=== PATIENT | male | born 1945 | race African-American/Black ===

== ENCOUNTER 2017-02-28 11:47 | Emergency (ER) | payer OTHER ==
[~2017-02-28] VITALS: Ht 180.3 cm; Wt 105.0 kg
[2017-02-28] MEDS ORDERED: ONDANSETRON HCL 4MG/2ML VIAL IV ONE (12:15)
[2017-02-28] MEDS ORDERED: MORPHINE SULFATE 4 MG/ML CPJ (NOT FOR IM USE) IV ONE (12:15)
[2017-02-28 12:36] LABS: HEMATOCRIT. 36.7 % (42.0-52.0); HEMOGLOBIN. 12.3 g/dL (14.0-18.0); MEAN CORPUSCULAR HEMOGLOBIN 28.9 pg (28.0-32.0); MEAN CORPUSCULAR VOLUME 85.9 fL (80.0-94.0); MEAN PLATELET VOLUME 8.8 fl (7.4-10.4); PLATELET 184 x1000/uL (130-400); RED BLOOD CELL COUNT 4.27 mill/uL (4.7-6.1); RED CELL DISTRIBUTION WIDTH 15.5 % (11.6-14.6)
[2017-02-28 12:43] LABS: INR 2.4; PROTHROMBIN TIME 24.9 sec
[2017-02-28 12:51] LABS: CARBON DIOXIDE 24 mEq/L (21-32); CHLORIDE 112 mEq/L (98-107)
[2017-02-28 13:11] LABS: PLATELET ESTIMATE NORMAL
[2017-02-28 13:21] LABS: CLARITY URINE CLEAR (CLEAR); COLOR URINE YELLOW (YELLOW); GLUCOSE URINE NEGATIVE (NEGATIVE); KETONES URINE NEGATIVE (NEGATIVE); LEUKOCYTE ESTERASE URINE NEGATIVE (NEGATIVE); NITRITE URINE NEGATIVE (NEGATIVE); OCCULT BLOOD URINE 2+ (NEGATIVE); PROTEIN URINE 4+ (NEGATIVE); SPECIFIC GRAVITY URINE 1.019 (1.005-1.030); UROBILINOGEN URINE 0.2 E.U./dL (0.2-1.0)
[2017-02-28 16:10] VITALS: BP 155/99
== END 2017-02-28 16:28 | disposition home or self-care (01) ==
LOC: ER 12:14
DX: R10.31 Right lower quadrant pain (principal); I48.91 Unspecified atrial fibrillation; E11.9 Type 2 diabetes mellitus without complications; I10 Essential (primary) hypertension; Z98.890 Other specified postprocedural states; Z79.01 Long term (current) use of anticoagulants
CPT/HCPCS: 36415; 74176; 80053; 81001; 83690; 85025; 85610; 96374; 96375; 99285; J2270; J2405

== ENCOUNTER 2018-02-28 23:39 | Inpatient (IN) | payer OTHER ==
[~2018-02-28] VITALS: Ht 172.7 cm; Wt 95.7 kg
[2018-03-01] VITALS (81 sets, daily range): BP systolic 117–179; BP diastolic 61–119
[2018-03-01 02:36] LABS: BASOPHILS % 0.6 % (0.0-2.0); EOSINOPHILS % 0.4 % (0.0-5.0); HEMATOCRIT. 31.8 % (42.0-52.0); HEMOGLOBIN. 10.5 g/dL (14.0-18.0); LYMPHOCYTES % 15.9 % (20.0-50.0); MEAN CORPUSCULAR HEMOGLOBIN 29.5 pg (28.0-32.0); MEAN CORPUSCULAR VOLUME 89.2 fL (80.0-94.0); MEAN PLATELET VOLUME 9.8 fl (7.4-10.4); MONOCYTES % 8.2 % (2.0-8.0); NEUTROPHILS % 74.9 % (40.0-76.0); PLATELET 174 x1000/uL (130-400); RED BLOOD CELL COUNT 3.57 mill/uL (4.7-6.1); RED CELL DISTRIBUTION WIDTH 14.4 % (11.6-14.6)
[2018-03-01 02:39] LABS: CHLORIDE 114 mEq/L (98-107)
[2018-03-01 02:42] LABS: INR 1.9; PARTIAL THROMBOPLASTIN TIME 57.8 sec (23.4-31.0); PROTHROMBIN TIME 19.4 sec (9.4-11.6)
[2018-03-01 02:43] LABS: ETHANOL BLOOD < 10 mg/dL
[2018-03-01 02:47] LABS: CREATINE KINASE 58 IU/L (39-308)
[2018-03-01] MEDS ORDERED: PHYTONADIONE 10 MG in DEXTROSE 5% WATER 50 ML IV ONE (03:15)
[2018-03-01] MEDS ORDERED: LEVETIRACETAM 1000MG/100ML 100 ML IV SCH (03:32)
[2018-03-01] MEDS ORDERED: PHYTONADIONE 10MG/ML AMP SUBCUT SCH (03:35)
[2018-03-01 04:29] LABS: AMMONIA 47 uMol/L (<32)
[2018-03-01] MEDS ORDERED: NICARDIPINE 100 MG in SODIUM CHLORIDE 0.9% 60 ML IV PRN (07:00)
[2018-03-01] MEDS ORDERED: ONDANSETRON HCL 4MG/2ML VIAL IV PRN (09:45)
[2018-03-01] MEDS ORDERED: LORAZEPAM 2MG/ML CPJ IV PRN (09:45)
[2018-03-01] MEDS ORDERED: ACETAMINOPHEN 650MG SUPP PR PRN (09:45)
[2018-03-01 09:59] LABS: CLARITY URINE CLEAR (CLEAR); COLOR URINE YELLOW (YELLOW); KETONES URINE NEGATIVE (NEGATIVE); LEUKOCYTE ESTERASE URINE NEGATIVE (NEGATIVE); NITRITE URINE NEGATIVE (NEGATIVE); OCCULT BLOOD URINE TRACE (NEGATIVE); PROTEIN URINE 3+ (NEGATIVE); SPECIFIC GRAVITY URINE 1.013 (1.005-1.030); UROBILINOGEN URINE 0.2 E.U./dL (0.2-1.0)
[2018-03-01 10:12] LABS: *AMPHETAMINES SCREEN URINE NEGATIVE (NEGATIVE); *BARBITURATES SCREEN URINE NEGATIVE (NEGATIVE); *BENZODIAZEPINES SCREEN URINE NEGATIVE (NEGATIVE); *COCAINE SCREEN URINE NEGATIVE (NEGATIVE); METHADONE URINE SCREEN NEGATIVE (NEGATIVE); OPIATES URINE SCREEN PRESUMTIVE POSITIVE (NEGATIVE); PHENCYCLIDINE URINE SCREEN NEGATIVE (NEGATIVE)
[2018-03-01 10:13] LABS: CANNABINOID URINE SCREEN NEGATIVE (NEGATIVE)
[2018-03-01] MEDS: LEVETIRACETAM 500 MG in SODIUM CHLORIDE 0.9% 100 ML IV SCH ×2 (11:34→21:37)
[2018-03-01 11:40] LABS: INR 1.5; PROTHROMBIN TIME 16.1 sec (9.4-11.6)
[2018-03-01 11:49] LABS: BASOPHILS % 0.2 % (0.0-2.0); EOSINOPHILS % 0.1 % (0.0-5.0); HEMATOCRIT. 32.9 % (42.0-52.0); MEAN CORPUSCULAR HEMOGLOBIN 29.6 pg (28.0-32.0); MEAN CORPUSCULAR VOLUME 88.5 fL (80.0-94.0); MEAN PLATELET VOLUME 9.9 fl (7.4-10.4); MONOCYTES % 9.3 % (2.0-8.0); NEUTROPHILS % 72.4 % (40.0-76.0); PLATELET 179 x1000/uL (130-400); RED BLOOD CELL COUNT 3.71 mill/uL (4.7-6.1); RED CELL DISTRIBUTION WIDTH 14.1 % (11.6-14.6)
[2018-03-01] MEDS ORDERED: LIDOCAINE HCL 1% 20ML VIAL (Pyxis) INJ ONE (12:10)
[2018-03-01] MEDS ORDERED: IPRATROPIUM/ALBUTEROL 0.5-3(2.5)MG/3ML NEB HHN PRN (12:15)
[2018-03-01] MEDS ORDERED: DILTIAZEM HCL 125 MG in DEXT 5% WATER 100 ML IV PRN (13:00)
[2018-03-01] MEDS: CITRIC ACID/SODIUM CITRATE SOLN 30ML UDC PO SCH ×2 (13:09→16:01)
[2018-03-01] MEDS: SODIUM CHLORIDE 0.9% 1,000 ML IV SCH (13:09)
[2018-03-01] MEDS: IPRATROPIUM/ALBUTEROL 0.5-3(2.5)MG/3ML NEB INH SCH ×2 (13:33→21:01)
[2018-03-01] MEDS ORDERED: PHYTONADIONE 10MG/ML AMP SUBCUT NR (14:00)
[2018-03-01 14:33] LABS: BG BASE EXCESS -5.9 mmol/L (-2.0-2.0); BG CARBOXYHEMOGLOBIN 0.3 % (0.5-1.5); BG DEOXYHEMOGLOBIN 2.3 % (0.0-5.0); BG FRACTION INSPIRED OXYGEN 21; BG HCO3 ACT 16.3 mmol/L (22.0-26.0); BG METHEMOGLOBIN 0.3 % (0.0-1.5); BG OXYGEN SATURATION 97.7 % (92.0-98.5); BG OXYHEMOGLOBIN 97.1 % (94.0-97.0); BG PCO2 23.7 mmHg (35.0-45.0); BG PH 7.455 (7.350-7.450); BG PO2 105.9 mmHg (75.0-100.0); BG SAMPLE SITE RIGHT RADIAL; BG TOTAL HEMOGLOBIN 12.1 g/dL (12.0-18.0); BG VENT MODE ROOM AIR
[2018-03-01 14:40] LABS: T4 FREE 1.12 ng/dL (0.76-1.46)
[2018-03-01 17:22] LABS: INR 1.3
[2018-03-01 17:38] LABS: CREATINE KINASE 77 IU/L (39-308)
[2018-03-01 17:42] LABS: CREATINE KINASE MB FRACTION 1.3 ng/mL (0.5-3.6)
[2018-03-01] MEDS ORDERED: DIGOXIN 500MCG/2ML AMP IV NR (18:30)
[2018-03-01] MEDS ORDERED: ENALAPRIL 2.5MG/2ML VIAL 2ML IV PRN (18:30)
[2018-03-01] MEDS: NITROGLYCERIN OINT 1GM/INCH UDPKT TD SCH ×2 (18:32→21:37)
[2018-03-01] MEDS: MORPHINE SULFATE 4 MG/ML CPJ (NOT FOR IM USE) IV PRN (19:33)
[2018-03-01] MEDS ORDERED: NICARDIPINE 50 MG in SODIUM CHLORIDE 0.9% 230 ML IV PRN (20:45)
[2018-03-01] MEDS: NICARDIPINE 100 MG in SODIUM CHLORIDE 0.9% 60 ML IV PRN (21:38)
[2018-03-01 23:06] LABS: CREATINE KINASE 64 IU/L (39-308)
[2018-03-01 23:07] LABS: CREATINE KINASE MB FRACTION 1.1 ng/mL (0.5-3.6)
[2018-03-02] VITALS (78 sets, daily range): BP systolic 60–227; BP diastolic 39–85
[2018-03-02] MEDS: IPRATROPIUM/ALBUTEROL 0.5-3(2.5)MG/3ML NEB INH SCH ×4 (01:01→20:01)
[2018-03-02] MEDS: SODIUM CHLORIDE 0.9% 1,000 ML IV SCH ×2 (02:56→17:49)
[2018-03-02] MEDS ORDERED: PHYTONADIONE 10MG/ML AMP SUBCUT NR (05:00)
[2018-03-02] MEDS: NITROGLYCERIN OINT 1GM/INCH UDPKT TD SCH ×3 (05:06→21:18)
[2018-03-02] MEDS: NICARDIPINE 100 MG in SODIUM CHLORIDE 0.9% 60 ML IV PRN ×2 (05:26→15:53)
[2018-03-02 05:31] LABS: INR 1.3; PROTHROMBIN TIME 13.2 sec (9.4-11.6)
[2018-03-02 05:37] LABS: HEMATOCRIT. 28.5 % (42.0-52.0); HEMOGLOBIN. 9.5 g/dL (14.0-18.0); MEAN CORPUSCULAR HEMOGLOBIN 29.7 pg (28.0-32.0); MEAN CORPUSCULAR VOLUME 88.8 fL (80.0-94.0); MEAN PLATELET VOLUME 9.6 fl (7.4-10.4); PLATELET 187 x1000/uL (130-400); RED BLOOD CELL COUNT 3.21 mill/uL (4.7-6.1); RED CELL DISTRIBUTION WIDTH 14.5 % (11.6-14.6)
[2018-03-02 05:47] LABS: PHOSPHORUS 4.3 mg/dL (2.5-4.9)
[2018-03-02 05:51] LABS: T4 FREE 1.06 ng/dL (0.76-1.46)
[2018-03-02 08:29] LABS: BG BASE EXCESS -8.2 mmol/L (-2.0-2.0); BG CARBOXYHEMOGLOBIN 0.3 % (0.5-1.5); BG DEOXYHEMOGLOBIN 3.1 % (0.0-5.0); BG FRACTION INSPIRED OXYGEN 21; BG HCO3 ACT 14.5 mmol/L (22.0-26.0); BG METHEMOGLOBIN 0.3 % (0.0-1.5); BG OXYGEN SATURATION 96.9 % (92.0-98.5); BG OXYHEMOGLOBIN 96.3 % (94.0-97.0); BG PCO2 21.7 mmHg (35.0-45.0); BG PH 7.443 (7.350-7.450); BG PO2 90.9 mmHg (75.0-100.0); BG SAMPLE SITE RIGHT BRACHIAL; BG TOTAL HEMOGLOBIN 9.3 g/dL (12.0-18.0); BG VENT MODE ROOM AIR
[2018-03-02] MEDS ORDERED: METRONIDAZOLE 500 MG PREMIX 100 ML IV SCH (08:45)
[2018-03-02] MEDS ORDERED: CEFEPIME 2,000 MG in DEXT 5% WATER 100 ML IV SCH (08:45)
[2018-03-02] MEDS ORDERED: THROMBIN (BOVINE) 5000 UNITS/VIAL TOP ONE (09:22)
[2018-03-02] MEDS ORDERED: GELATIN SPONGE,COMPRESSED SZ 100 ONE (09:22)
[2018-03-02] MEDS ORDERED: LIDOCAINE HCL/EPINEPHRINE 1%-EPI 1:100,000 20 ML VIAL ONE (09:22)
[2018-03-02] MEDS ORDERED: NORMAL SALINE 0.9% 10 ML SYR ONE (09:22)
[2018-03-02] MEDS ORDERED: BACITRACIN 50,000 UNITS/VIAL ONE (09:23)
[2018-03-02] MEDS ORDERED: ESMOLOL 2500MG PREMIX 250 ML IV PRN (09:30)
[2018-03-02] MEDS ORDERED: FENTANYL CITRATE/PF 50MCG/ML 5ML VIAL ONE (09:39)
[2018-03-02] MEDS ORDERED: PROPOFOL 200MG/20ML VIAL IV ONE (09:39)
[2018-03-02] MEDS ORDERED: ROCURONIUM BROMIDE 10MG/ML VIAL 5ML IV ONE ×3 (09:39→10:50)
[2018-03-02] MEDS ORDERED: MIDAZOLAM HCL 2 MG/2 ML VIAL ONE (09:39)
[2018-03-02] MEDS ORDERED: POVIDONE-IODINE OINT 28.4GM TOP ONE (09:44)
[2018-03-02] MEDS ORDERED: BACITRACIN ZINC 15GM TUBE TOP ONE (09:44)
[2018-03-02] MEDS ORDERED: FENTANYL CITRATE/PF 50MCG/ML 2ML VIAL ONE ×2 (09:56→10:15)
[2018-03-02] MEDS ORDERED: CEFAZOLIN SODIUM 1000MG/VIAL ONE (10:14)
[2018-03-02 11:25] LABS: PLATELET ESTIMATE NORMAL
[2018-03-02] MEDS: LEVETIRACETAM 500 MG in SODIUM CHLORIDE 0.9% 100 ML IV SCH ×2 (12:13→20:38)
[2018-03-02] MEDS: PANTOPRAZOLE SODIUM 40 MG/VIAL IV SCH (12:31)
[2018-03-02] MEDS: PROPOFOL 10MG/ML 100ML 100 ML IV PRN ×2 (12:32→17:48)
[2018-03-02] MEDS: CEFEPIME 2,000 MG in DEXT 5% WATER 100 ML IV SCH (13:12)
[2018-03-02 14:11] LABS: BG BASE EXCESS -9.6 mmol/L (-2.0-2.0); BG CARBOXYHEMOGLOBIN 0.1 % (0.5-1.5); BG DEOXYHEMOGLOBIN 1.6 % (0.0-5.0); BG FRACTION INSPIRED OXYGEN 35; BG HCO3 ACT 14.8 mmol/L (22.0-26.0); BG METHEMOGLOBIN 0.3 % (0.0-1.5); BG OXYGEN SATURATION 98.4 % (92.0-98.5); BG PCO2 27.2 mmHg (35.0-45.0); BG PH 7.353 (7.350-7.450); BG PO2 166.5 mmHg (75.0-100.0); BG SAMPLE SITE A-LINE; BG TIDAL VOLUME(mL) 550 mL; BG TOTAL HEMOGLOBIN 8.6 g/dL (12.0-18.0); BG VENT MODE VENT - A/C; BG VENT RATE 12 set
[2018-03-02] MEDS: METRONIDAZOLE 500 MG PREMIX 100 ML IV SCH ×2 (14:18→21:15)
[2018-03-02] MEDS: DIGOXIN 500MCG/2ML AMP IV SCH (17:43)
[2018-03-02] MEDS: PROPYLTHIOURACIL 50MG TABLET NG SCH (20:00)
[2018-03-02] MEDS ORDERED: EPOETIN ALFA 4000UNITS/ML VIAL SUBCUT NR (21:00)
[2018-03-03] VITALS (87 sets, daily range): BP systolic 99–179; BP diastolic 41–109
[2018-03-03] MEDS: PROPOFOL 10MG/ML 100ML 100 ML IV PRN ×4 (00:47→15:50)
[2018-03-03] MEDS: NICARDIPINE 100 MG in SODIUM CHLORIDE 0.9% 60 ML IV PRN ×2 (00:47→16:38)
[2018-03-03] MEDS: IPRATROPIUM/ALBUTEROL 0.5-3(2.5)MG/3ML NEB INH SCH ×4 (01:28→20:48)
[2018-03-03] MEDS: PROPYLTHIOURACIL 50MG TABLET NG SCH ×3 (04:00→20:11)
[2018-03-03] MEDS: NITROGLYCERIN OINT 1GM/INCH UDPKT TD SCH (05:11)
[2018-03-03] MEDS: MORPHINE SULFATE 4 MG/ML CPJ (NOT FOR IM USE) IV PRN ×3 (05:20→16:09)
[2018-03-03 05:47] LABS: BASOPHILS % 0.2 % (0.0-2.0); HEMATOCRIT. 26.4 % (42.0-52.0); HEMOGLOBIN. 8.6 g/dL (14.0-18.0); LYMPHOCYTES % 8.2 % (20.0-50.0); MEAN CORPUSCULAR HEMOGLOBIN 29.8 pg (28.0-32.0); MEAN CORPUSCULAR VOLUME 91.7 fL (80.0-94.0); MEAN PLATELET VOLUME 9.5 fl (7.4-10.4); MONOCYTES % 11.2 % (2.0-8.0); NEUTROPHILS % 80.4 % (40.0-76.0); PLATELET 169 x1000/uL (130-400); RED BLOOD CELL COUNT 2.88 mill/uL (4.7-6.1); RED CELL DISTRIBUTION WIDTH 15.1 % (11.6-14.6)
[2018-03-03 05:53] LABS: INR 1.3; PROTHROMBIN TIME 13.8 sec (9.4-11.6)
[2018-03-03 06:44] LABS: PHOSPHORUS 4.8 mg/dL (2.5-4.9)
[2018-03-03 07:29] LABS: BG BASE EXCESS -9.4 mmol/L (-2.0-2.0); BG CARBOXYHEMOGLOBIN 0.3 % (0.5-1.5); BG DEOXYHEMOGLOBIN 1.1 % (0.0-5.0); BG HCO3 ACT 14.2 mmol/L (22.0-26.0); BG METHEMOGLOBIN 0.3 % (0.0-1.5); BG OXYGEN SATURATION 98.9 % (92.0-98.5); BG OXYHEMOGLOBIN 98.3 % (94.0-97.0); BG PCO2 23.8 mmHg (35.0-45.0); BG PH 7.395 (7.350-7.450); BG PO2 168.8 mmHg (75.0-100.0); BG SAMPLE SITE A-LINE; BG TIDAL VOLUME(mL) 550 mL; BG TOTAL HEMOGLOBIN 8.1 g/dL (12.0-18.0); BG VENT MODE VENT - A/C; BG VENT RATE 12 set
[2018-03-03] MEDS ORDERED: ESMOLOL 2500MG PREMIX 250 ML IV PRN (09:00)
[2018-03-03] MEDS: PANTOPRAZOLE SODIUM 40 MG/VIAL IV SCH (09:43)
[2018-03-03] MEDS: LEVETIRACETAM 500 MG in SODIUM CHLORIDE 0.9% 100 ML IV SCH ×2 (09:43→20:10)
[2018-03-03] MEDS: SODIUM CHLORIDE 0.9% 1,000 ML IV SCH (09:45)
[2018-03-03] MEDS ORDERED: DILTIAZEM HCL 30MG TABLET PO SCH (11:00)
[2018-03-03] MEDS ORDERED: DIGOXIN 500MCG/2ML AMP IV NR (11:00)
[2018-03-03] MEDS ORDERED: LIDOCAINE HCL 2% JELLY 5ML MM NR (11:00)
[2018-03-03] MEDS: CEFEPIME 2,000 MG in DEXT 5% WATER 100 ML IV SCH (11:12)
[2018-03-03] MEDS: ACETAMINOPHEN 325MG TABLET PO PRN (11:38)
[2018-03-03] MEDS: METRONIDAZOLE 500 MG PREMIX 100 ML IV SCH ×2 (11:45→20:12)
[2018-03-03] MEDS: ESMOLOL 2500MG PREMIX 250 ML IV PRN (17:36)
[2018-03-03] MEDS: DIGOXIN 500MCG/2ML AMP IV SCH (17:37)
[2018-03-03] MEDS: DILTIAZEM HCL 30MG TABLET PO SCH (20:12)
[2018-03-04] VITALS (93 sets, daily range): BP systolic 83–161; BP diastolic 42–85
[2018-03-04] MEDS: PROPOFOL 10MG/ML 100ML 100 ML IV PRN ×3 (01:13→22:54)
[2018-03-04] MEDS: SODIUM CHLORIDE 0.9% 1,000 ML IV SCH (01:13)
[2018-03-04] MEDS: NICARDIPINE 100 MG in SODIUM CHLORIDE 0.9% 60 ML IV PRN ×2 (01:14→12:48)
[2018-03-04] MEDS: IPRATROPIUM/ALBUTEROL 0.5-3(2.5)MG/3ML NEB INH SCH ×4 (01:53→19:53)
[2018-03-04] MEDS: PROPYLTHIOURACIL 50MG TABLET NG SCH ×3 (03:05→20:14)
[2018-03-04] MEDS: MORPHINE SULFATE 4 MG/ML CPJ (NOT FOR IM USE) IV PRN ×2 (03:06→10:45)
[2018-03-04] MEDS: ESMOLOL 2500MG PREMIX 250 ML IV PRN (05:01)
[2018-03-04] MEDS: DILTIAZEM HCL 30MG TABLET PO SCH (05:01)
[2018-03-04 06:16] LABS: BASOPHILS % 0.3 % (0.0-2.0); EOSINOPHILS % 0.4 % (0.0-5.0); HEMATOCRIT. 23.7 % (42.0-52.0); HEMOGLOBIN. 7.9 g/dL (14.0-18.0); MEAN CORPUSCULAR HEMOGLOBIN 29.7 pg (28.0-32.0); MEAN CORPUSCULAR VOLUME 89.6 fL (80.0-94.0); MEAN PLATELET VOLUME 9.5 fl (7.4-10.4); MONOCYTES % 9.7 % (2.0-8.0); NEUTROPHILS % 79.6 % (40.0-76.0); PLATELET 163 x1000/uL (130-400); RED BLOOD CELL COUNT 2.65 mill/uL (4.7-6.1); RED CELL DISTRIBUTION WIDTH 14.8 % (11.6-14.6)
[2018-03-04 06:25] LABS: PHOSPHORUS 6.3 mg/dL (2.5-4.9)
[2018-03-04 06:40] LABS: DIGOXIN 1.6 ng/mL (0.9-2.0)
[2018-03-04] MEDS: CEFEPIME 2,000 MG in DEXT 5% WATER 100 ML IV SCH (09:22)
[2018-03-04] MEDS: SODIUM CHLORIDE 0.45% 1,000 ML IV SCH ×2 (09:22→21:11)
[2018-03-04] MEDS ORDERED: PANTOPRAZOLE SODIUM 40 MG/VIAL IV SCH (09:30)
[2018-03-04] MEDS: LEVETIRACETAM 500 MG in SODIUM CHLORIDE 0.9% 100 ML IV SCH ×2 (10:01→21:11)
[2018-03-04] MEDS: METRONIDAZOLE 500 MG PREMIX 100 ML IV SCH ×2 (11:00→20:14)
[2018-03-04] MEDS: METOPROLOL TARTRATE 25MG TABLET PO SCH ×2 (12:33→20:17)
[2018-03-04] MEDS: DILTIAZEM HCL 60MG TABLET PO SCH ×3 (12:34→23:07)
[2018-03-04] MEDS ORDERED: DILTIAZEM HCL 60MG TABLET PO SCH (14:00)
[2018-03-05] VITALS (107 sets, daily range): BP systolic 92–168; BP diastolic 44–106
[2018-03-05] MEDS: IPRATROPIUM/ALBUTEROL 0.5-3(2.5)MG/3ML NEB INH SCH ×4 (01:41→20:20)
[2018-03-05] MEDS: PROPYLTHIOURACIL 50MG TABLET NG SCH ×3 (05:31→20:26)
[2018-03-05] MEDS: DILTIAZEM HCL 60MG TABLET PO SCH ×3 (05:32→18:00)
[2018-03-05 05:38] LABS: BASOPHILS % 0.2 % (0.0-2.0); EOSINOPHILS % 0.6 % (0.0-5.0); HEMATOCRIT. 27.5 % (42.0-52.0); MEAN CORPUSCULAR HEMOGLOBIN 29.9 pg (28.0-32.0); MEAN CORPUSCULAR VOLUME 91.4 fL (80.0-94.0); MEAN PLATELET VOLUME 9.9 fl (7.4-10.4); MONOCYTES % 10.1 % (2.0-8.0); NEUTROPHILS % 80.1 % (40.0-76.0); PLATELET 161 x1000/uL (130-400); RED BLOOD CELL COUNT 3.01 mill/uL (4.7-6.1); RED CELL DISTRIBUTION WIDTH 14.7 % (11.6-14.6)
[2018-03-05 06:08] LABS: PHOSPHORUS 6.9 mg/dL (2.5-4.9)
[2018-03-05] MEDS: METOPROLOL TARTRATE 25MG TABLET PO SCH ×2 (09:00→20:26)
[2018-03-05 09:09] LABS: BG BASE EXCESS -13.3 mmol/L (-2.0-2.0); BG CARBOXYHEMOGLOBIN 0.3 % (0.5-1.5); BG DEOXYHEMOGLOBIN 0.8 % (0.0-5.0); BG HCO3 ACT 10.8 mmol/L (22.0-26.0); BG METHEMOGLOBIN 0.5 % (0.0-1.5); BG OXYGEN SATURATION 99.2 % (92.0-98.5); BG OXYHEMOGLOBIN 98.4 % (94.0-97.0); BG PCO2 20.5 mmHg (35.0-45.0); BG PH 7.338 (7.350-7.450); BG PO2 288.4 mmHg (75.0-100.0); BG SAMPLE SITE RIGHT RADIAL; BG TIDAL VOLUME(mL) 500 mL; BG TOTAL HEMOGLOBIN 9.6 g/dL (12.0-18.0); BG VENT MODE VENT - A/C; BG VENT RATE 12 set
[2018-03-05] MEDS: METRONIDAZOLE 500 MG PREMIX 100 ML IV SCH ×2 (09:56→20:20)
[2018-03-05] MEDS: PANTOPRAZOLE SODIUM 40 MG/VIAL IV SCH (09:56)
[2018-03-05] MEDS: LEVETIRACETAM 500 MG in SODIUM CHLORIDE 0.9% 100 ML IV SCH ×2 (09:56→21:34)
[2018-03-05] MEDS: MORPHINE SULFATE 4 MG/ML CPJ (NOT FOR IM USE) IV PRN (10:19)
[2018-03-05] MEDS: CEFEPIME 2,000 MG in DEXT 5% WATER 100 ML IV SCH (12:33)
[2018-03-05] MEDS: SODIUM CHLORIDE 0.45% 1,000 ML IV SCH (12:34)
[2018-03-05] MEDS: NICARDIPINE 100 MG in SODIUM CHLORIDE 0.9% 60 ML IV PRN (16:31)
[2018-03-05] MEDS: PROPOFOL 10MG/ML 100ML 100 ML IV PRN (16:32)
[2018-03-05] MEDS: ESMOLOL 2500MG PREMIX 250 ML IV PRN (16:44)
[2018-03-06] VITALS (105 sets, daily range): BP systolic 99–160; BP diastolic 46–99
[2018-03-06] MEDS: DILTIAZEM HCL 60MG TABLET PO SCH ×5 (00:06→23:32)
[2018-03-06] MEDS: PROPOFOL 10MG/ML 100ML 100 ML IV PRN ×3 (01:06→21:33)
[2018-03-06] MEDS: IPRATROPIUM/ALBUTEROL 0.5-3(2.5)MG/3ML NEB INH SCH ×4 (02:04→20:00)
[2018-03-06] MEDS: SODIUM CHLORIDE 0.45% 1,000 ML IV SCH ×2 (03:12→14:00)
[2018-03-06] MEDS: PROPYLTHIOURACIL 50MG TABLET NG SCH ×2 (03:12→18:59)
[2018-03-06] MEDS: ESMOLOL 2500MG PREMIX 250 ML IV PRN (04:55)
[2018-03-06 05:36] LABS: BASOPHILS % 0.1 % (0.0-2.0); EOSINOPHILS % 1.1 % (0.0-5.0); HEMATOCRIT. 24.9 % (42.0-52.0); HEMOGLOBIN. 8.3 g/dL (14.0-18.0); LYMPHOCYTES % 7.3 % (20.0-50.0); MEAN CORPUSCULAR HEMOGLOBIN 29.4 pg (28.0-32.0); MEAN CORPUSCULAR VOLUME 88.7 fL (80.0-94.0); MEAN PLATELET VOLUME 9.5 fl (7.4-10.4); MONOCYTES % 10.5 % (2.0-8.0); PLATELET 127 x1000/uL (130-400); RED CELL DISTRIBUTION WIDTH 14.6 % (11.6-14.6)
[2018-03-06 05:42] LABS: CHLORIDE 120 mEq/L (98-107)
[2018-03-06 05:48] LABS: PHOSPHORUS 4.4 mg/dL (2.5-4.9)
[2018-03-06 09:23] LABS: BG BASE EXCESS -7.1 mmol/L (-2.0-2.0); BG CARBOXYHEMOGLOBIN 0.3 % (0.5-1.5); BG DEOXYHEMOGLOBIN 2.4 % (0.0-5.0); BG HCO3 ACT 17.2 mmol/L (22.0-26.0); BG METHEMOGLOBIN 0.2 % (0.0-1.5); BG OXYGEN SATURATION 97.6 % (92.0-98.5); BG OXYHEMOGLOBIN 97.1 % (94.0-97.0); BG PCO2 30.5 mmHg (35.0-45.0); BG PH 7.369 (7.350-7.450); BG PO2 108.5 mmHg (75.0-100.0); BG SAMPLE SITE RIGHT RADIAL; BG TIDAL VOLUME(mL) 500 mL; BG TOTAL HEMOGLOBIN 10.4 g/dL (12.0-18.0); BG VENT MODE VENT - A/C; BG VENT RATE 12 set
[2018-03-06] MEDS: LEVETIRACETAM 500 MG in SODIUM CHLORIDE 0.9% 100 ML IV SCH ×2 (09:48→21:27)
[2018-03-06] MEDS: PANTOPRAZOLE SODIUM 40 MG/VIAL IV SCH (09:48)
[2018-03-06] MEDS: METOPROLOL TARTRATE 25MG TABLET PO SCH ×2 (09:48→20:02)
[2018-03-06] MEDS: METRONIDAZOLE 500 MG PREMIX 100 ML IV SCH ×2 (09:50→20:01)
[2018-03-06] MEDS: CEFEPIME 2,000 MG in DEXT 5% WATER 100 ML IV SCH (10:00)
[2018-03-06 17:35] LABS: BG BASE EXCESS -7.2 mmol/L (-2.0-2.0); BG CARBOXYHEMOGLOBIN 0.3 % (0.5-1.5); BG DEOXYHEMOGLOBIN 2.7 % (0.0-5.0); BG HCO3 ACT 16.3 mmol/L (22.0-26.0); BG METHEMOGLOBIN 0.3 % (0.0-1.5); BG OXYGEN SATURATION 97.3 % (92.0-98.5); BG OXYHEMOGLOBIN 96.7 % (94.0-97.0); BG PCO2 26.2 mmHg (35.0-45.0); BG PH 7.411 (7.350-7.450); BG PO2 105.3 mmHg (75.0-100.0); BG SAMPLE SITE RIGHT RADIAL; BG TIDAL VOLUME(mL) 500 mL; BG TOTAL HEMOGLOBIN 9.8 g/dL (12.0-18.0); BG VENT MODE VENT - SIMV; BG VENT RATE 10 set
[2018-03-06] MEDS: ACETAMINOPHEN 325MG TABLET PO PRN (18:58)
[2018-03-06] MEDS ORDERED: LORAZEPAM 2MG/ML CPJ IV PRN (19:15)
[2018-03-06] MEDS: NICARDIPINE 100 MG in SODIUM CHLORIDE 0.9% 60 ML IV PRN (22:15)
[2018-03-07] VITALS (103 sets, daily range): BP systolic 92–160; BP diastolic 47–75
[2018-03-07] MEDS: IPRATROPIUM/ALBUTEROL 0.5-3(2.5)MG/3ML NEB INH SCH ×4 (01:59→19:55)
[2018-03-07] MEDS: PROPYLTHIOURACIL 50MG TABLET NG SCH ×2 (05:28→18:23)
[2018-03-07] MEDS: DILTIAZEM HCL 60MG TABLET PO SCH ×3 (05:29→18:00)
[2018-03-07 05:45] LABS: BASOPHILS % 0.1 % (0.0-2.0); EOSINOPHILS % 0.7 % (0.0-5.0); HEMATOCRIT. 28.2 % (42.0-52.0); HEMOGLOBIN. 9.4 g/dL (14.0-18.0); LYMPHOCYTES % 9.1 % (20.0-50.0); MEAN CORPUSCULAR HEMOGLOBIN 29.7 pg (28.0-32.0); MEAN CORPUSCULAR VOLUME 88.8 fL (80.0-94.0); MEAN PLATELET VOLUME 9.4 fl (7.4-10.4); MONOCYTES % 11.4 % (2.0-8.0); NEUTROPHILS % 78.7 % (40.0-76.0); PLATELET 154 x1000/uL (130-400); RED BLOOD CELL COUNT 3.18 mill/uL (4.7-6.1); RED CELL DISTRIBUTION WIDTH 14.6 % (11.6-14.6)
[2018-03-07 05:52] LABS: CHLORIDE 114 mEq/L (98-107)
[2018-03-07 06:08] LABS: PHOSPHORUS 4.2 mg/dL (2.5-4.9)
[2018-03-07] MEDS: NICARDIPINE 100 MG in SODIUM CHLORIDE 0.9% 60 ML IV PRN ×2 (07:00→15:49)
[2018-03-07] MEDS: SODIUM CHLORIDE 0.45% 1,000 ML IV SCH (08:00)
[2018-03-07 09:13] LABS: BG BASE EXCESS -8.8 mmol/L (-2.0-2.0); BG CARBOXYHEMOGLOBIN 0.3 % (0.5-1.5); BG DEOXYHEMOGLOBIN 2.6 % (0.0-5.0); BG FRACTION INSPIRED OXYGEN 24; BG HCO3 ACT 15.1 mmol/L (22.0-26.0); BG METHEMOGLOBIN 0.3 % (0.0-1.5); BG OXYGEN SATURATION 97.4 % (92.0-98.5); BG OXYHEMOGLOBIN 96.8 % (94.0-97.0); BG PCO2 26.2 mmHg (35.0-45.0); BG PH 7.379 (7.350-7.450); BG PO2 102.5 mmHg (75.0-100.0); BG PRESSURE SUPPORT 12; BG SAMPLE SITE RIGHT RADIAL; BG TIDAL VOLUME(mL) 500 mL; BG TOTAL HEMOGLOBIN 9.6 g/dL (12.0-18.0); BG VENT MODE VENT - SIMV; BG VENT RATE 10 set
[2018-03-07] MEDS: METOPROLOL TARTRATE 25MG TABLET PO SCH (09:15)
[2018-03-07] MEDS: LEVETIRACETAM 500 MG in SODIUM CHLORIDE 0.9% 100 ML IV SCH (09:15)
[2018-03-07] MEDS: PANTOPRAZOLE SODIUM 40 MG/VIAL IV SCH (09:15)
[2018-03-07] MEDS: METRONIDAZOLE 500 MG PREMIX 100 ML IV SCH ×2 (09:16→21:42)
[2018-03-07] MEDS: CEFEPIME 2,000 MG in DEXT 5% WATER 100 ML IV SCH (10:00)
[2018-03-07 13:27] LABS: AMMONIA 26 uMol/L (<32)
[2018-03-07] MEDS: HYDRALAZINE HCL 25MG TABLET PO SCH ×2 (13:54→21:42)
[2018-03-07] MEDS: PROPOFOL 10MG/ML 100ML 100 ML IV PRN ×3 (16:08→21:54)
[2018-03-07] MEDS: ACETAMINOPHEN 650MG/20.3ML UDC GT PRN ×2 (18:23→21:56)
[2018-03-07] MEDS ORDERED: MIDAZOLAM HCL 100 MG in DEXT 5% WATER 80 ML IV PRN (18:30)
[2018-03-07] MEDS: METOPROLOL TARTRATE 50MG TABLET PO SCH (21:42)
[2018-03-07] MEDS: LEVETIRACETAM 750 MG in SODIUM CHLORIDE 0.9% 100 ML IV SCH (21:42)
[2018-03-07] MEDS: FENTANYL CITRATE/PF 500 MCG in SODIUM CHLORIDE 0.9% 40 ML IV PRN (21:54)
[2018-03-08] VITALS (92 sets, daily range): BP systolic 94–161; BP diastolic 43–80
[2018-03-08] MEDS: DILTIAZEM HCL 60MG TABLET PO SCH ×5 (00:43→23:22)
[2018-03-08] MEDS: IPRATROPIUM/ALBUTEROL 0.5-3(2.5)MG/3ML NEB INH SCH ×4 (02:10→20:52)
[2018-03-08] MEDS ORDERED: IOHEXOL-350 100 ML BOTTLE ONE (02:27)
[2018-03-08 05:30] LABS: BASOPHILS % 0.1 % (0.0-2.0); EOSINOPHILS % 0.1 % (0.0-5.0); HEMATOCRIT. 23.4 % (42.0-52.0); HEMOGLOBIN. 7.9 g/dL (14.0-18.0); LYMPHOCYTES % 7.3 % (20.0-50.0); MEAN CORPUSCULAR HEMOGLOBIN 29.7 pg (28.0-32.0); MEAN CORPUSCULAR VOLUME 88.3 fL (80.0-94.0); MEAN PLATELET VOLUME 9.4 fl (7.4-10.4); MONOCYTES % 9.6 % (2.0-8.0); NEUTROPHILS % 82.9 % (40.0-76.0); PLATELET 105 x1000/uL (130-400); RED BLOOD CELL COUNT 2.65 mill/uL (4.7-6.1); RED CELL DISTRIBUTION WIDTH 14.2 % (11.6-14.6)
[2018-03-08 05:43] LABS: PHOSPHORUS 4.3 mg/dL (2.5-4.9)
[2018-03-08] MEDS: HYDRALAZINE HCL 25MG TABLET PO SCH ×3 (06:38→21:32)
[2018-03-08] MEDS: PROPYLTHIOURACIL 50MG TABLET NG SCH ×2 (06:38→17:04)
[2018-03-08 07:37] LABS: BG BASE EXCESS -4.3 mmol/L (-2.0-2.0); BG CARBOXYHEMOGLOBIN 0.2 % (0.5-1.5); BG DEOXYHEMOGLOBIN 2.4 % (0.0-5.0); BG FRACTION INSPIRED OXYGEN 40; BG HCO3 ACT 18.6 mmol/L (22.0-26.0); BG METHEMOGLOBIN 0.3 % (0.0-1.5); BG OXYGEN SATURATION 97.6 % (92.0-98.5); BG OXYHEMOGLOBIN 97.1 % (94.0-97.0); BG PCO2 26.2 mmHg (35.0-45.0); BG PO2 103.6 mmHg (75.0-100.0); BG SAMPLE SITE RIGHT RADIAL; BG TIDAL VOLUME(mL) 500 mL; BG TOTAL HEMOGLOBIN 7.8 g/dL (12.0-18.0); BG VENT MODE VENT - A/C; BG VENT RATE 10 set
[2018-03-08] MEDS: DEXAMETHASONE 4MG/ML 1ML VIAL IV SCH ×3 (07:48→17:04)
[2018-03-08] MEDS: METRONIDAZOLE 500 MG PREMIX 100 ML IV SCH (07:56)
[2018-03-08] MEDS: PANTOPRAZOLE SODIUM 40 MG/VIAL IV SCH (08:39)
[2018-03-08] MEDS: LEVETIRACETAM 750 MG in SODIUM CHLORIDE 0.9% 100 ML IV SCH ×2 (08:40→20:34)
[2018-03-08] MEDS: METOPROLOL TARTRATE 50MG TABLET PO SCH ×2 (08:40→20:34)
[2018-03-08] MEDS: CEFEPIME 2,000 MG in DEXT 5% WATER 100 ML IV SCH (08:40)
[2018-03-08] MEDS: FENTANYL CITRATE/PF 500 MCG in SODIUM CHLORIDE 0.9% 40 ML IV PRN (08:41)
[2018-03-08] MEDS ORDERED: VANCOMYCIN 1500MG in DEXTROSE 5% WATER 250ML IV SCH (13:00)
[2018-03-08] MEDS: EPOETIN ALFA 10000UNITS/ML VIAL SUBCUT SCH (20:34)
[2018-03-08] MEDS: ACETAMINOPHEN 650MG/20.3ML UDC GT PRN (21:32)
[2018-03-09] VITALS (80 sets, daily range): BP systolic 90–155; BP diastolic 39–99
[2018-03-09] MEDS: DEXAMETHASONE 4MG/ML 1ML VIAL IV SCH ×5 (00:04→23:41)
[2018-03-09] MEDS: IPRATROPIUM/ALBUTEROL 0.5-3(2.5)MG/3ML NEB INH SCH ×4 (02:52→21:14)
[2018-03-09 05:06] LABS: HEMATOCRIT. 25.8 % (42.0-52.0); HEMOGLOBIN. 8.6 g/dL (14.0-18.0); MEAN CORPUSCULAR HEMOGLOBIN 29.4 pg (28.0-32.0); MEAN CORPUSCULAR VOLUME 88.3 fL (80.0-94.0); MEAN PLATELET VOLUME 9.7 fl (7.4-10.4); PLATELET 153 x1000/uL (130-400); RED BLOOD CELL COUNT 2.92 mill/uL (4.7-6.1); RED CELL DISTRIBUTION WIDTH 14.6 % (11.6-14.6)
[2018-03-09] MEDS: PROPYLTHIOURACIL 50MG TABLET NG SCH ×2 (05:31→19:00)
[2018-03-09 05:32] LABS: PHOSPHORUS 4.9 mg/dL (2.5-4.9)
[2018-03-09] MEDS: DILTIAZEM HCL 60MG TABLET PO SCH ×4 (05:32→23:41)
[2018-03-09] MEDS: HYDRALAZINE HCL 25MG TABLET PO SCH ×3 (05:32→22:00)
[2018-03-09 07:54] LABS: PLATELET ESTIMATE NORMAL
[2018-03-09] MEDS: LEVETIRACETAM 750 MG in SODIUM CHLORIDE 0.9% 100 ML IV SCH ×2 (09:00→20:35)
[2018-03-09] MEDS: CEFEPIME 2,000 MG in DEXT 5% WATER 100 ML IV SCH (09:07)
[2018-03-09] MEDS: PANTOPRAZOLE SODIUM 40 MG/VIAL IV SCH (09:07)
[2018-03-09] MEDS: METOPROLOL TARTRATE 50MG TABLET PO SCH ×2 (12:20→20:36)
[2018-03-09] MEDS ORDERED: VANCOMYCIN 750 MG PREMIX 150 ML IV NR (20:00)
[2018-03-09] MEDS ORDERED: DEXTROSE 50% WATER 50ML SYRINGE IV PRN (20:00)
[2018-03-09] MEDS: BLOOD SUGAR DIAGNOSTIC STRIP TEST SCH (20:36)
[2018-03-09] MEDS: ACETAMINOPHEN 650MG/20.3ML UDC GT PRN (20:46)
[2018-03-09] MEDS: INSULIN LISPRO 100 UNITS/ML SUBCUT SCH (20:47)
[2018-03-10] VITALS (55 sets, daily range): BP systolic 102–186; BP diastolic 53–99
[2018-03-10] MEDS: IPRATROPIUM/ALBUTEROL 0.5-3(2.5)MG/3ML NEB INH SCH ×5 (05:14→20:20)
[2018-03-10] MEDS: DILTIAZEM HCL 60MG TABLET PO SCH ×3 (05:20→19:18)
[2018-03-10] MEDS: HYDRALAZINE HCL 25MG TABLET PO SCH ×3 (05:20→22:35)
[2018-03-10] MEDS: DEXAMETHASONE 4MG/ML 1ML VIAL IV SCH ×3 (05:20→21:08)
[2018-03-10 05:46] LABS: HEMATOCRIT. 26.3 % (42.0-52.0); HEMOGLOBIN. 8.7 g/dL (14.0-18.0); MEAN CORPUSCULAR HEMOGLOBIN 29.3 pg (28.0-32.0); MEAN CORPUSCULAR VOLUME 88.4 fL (80.0-94.0); MEAN PLATELET VOLUME 9.9 fl (7.4-10.4); PLATELET 162 x1000/uL (130-400); RED BLOOD CELL COUNT 2.98 mill/uL (4.7-6.1); RED CELL DISTRIBUTION WIDTH 14.4 % (11.6-14.6)
[2018-03-10 06:04] LABS: PHOSPHORUS 4.4 mg/dL (2.5-4.9)
[2018-03-10] MEDS: BLOOD SUGAR DIAGNOSTIC STRIP TEST SCH ×4 (06:08→21:11)
[2018-03-10] MEDS: INSULIN LISPRO 100 UNITS/ML SUBCUT SCH ×4 (06:14→21:09)
[2018-03-10 07:13] LABS: PLATELET ESTIMATE NORMAL
[2018-03-10 08:37] LABS: BG BASE EXCESS -3.8 mmol/L (-2.0-2.0); BG CARBOXYHEMOGLOBIN 0.3 % (0.5-1.5); BG DEOXYHEMOGLOBIN 1.9 % (0.0-5.0); BG FRACTION INSPIRED OXYGEN 30; BG HCO3 ACT 19.1 mmol/L (22.0-26.0); BG METHEMOGLOBIN 0.3 % (0.0-1.5); BG OXYGEN SATURATION 98.1 % (92.0-98.5); BG OXYHEMOGLOBIN 97.5 % (94.0-97.0); BG PCO2 27.6 mmHg (35.0-45.0); BG PH 7.459 (7.350-7.450); BG SAMPLE SITE RIGHT RADIAL; BG TIDAL VOLUME(mL) 500 mL; BG TOTAL HEMOGLOBIN 9.8 g/dL (12.0-18.0); BG VENT MODE VENT - A/C; BG VENT RATE 10 set
[2018-03-10] MEDS ORDERED: CLONIDINE 0.1MG TABLET PO PRN (09:15)
[2018-03-10] MEDS: PROPYLTHIOURACIL 50MG TABLET NG SCH (09:43)
[2018-03-10] MEDS: LEVETIRACETAM 750 MG in SODIUM CHLORIDE 0.9% 100 ML IV SCH ×2 (09:43→21:07)
[2018-03-10] MEDS: PANTOPRAZOLE SODIUM 40 MG/VIAL IV SCH (09:43)
[2018-03-10] MEDS: METOPROLOL TARTRATE 50MG TABLET PO SCH (09:44)
[2018-03-10] MEDS ORDERED: DIGOXIN 500MCG/2ML AMP IV SCH (10:45)
[2018-03-10] MEDS ORDERED: LOPERAMIDE 2 MG/10 ML UDC NG PRN (11:00)
[2018-03-10] MEDS ORDERED: LEVOFLOXACIN 750MG PREMIX 150 ML IV SCH (12:00)
[2018-03-10] MEDS ORDERED: CEFEPIME 2,000 MG in DEXT 5% WATER 100 ML IV SCH (16:30)
[2018-03-10] MEDS: EPOETIN ALFA 10000UNITS/ML VIAL SUBCUT SCH (21:08)
[2018-03-10] MEDS: METOPROLOL TARTRATE 100MG TABLET PO SCH (21:11)
[2018-03-11] VITALS (42 sets, daily range): BP systolic 108–154; BP diastolic 53–90
[2018-03-11] MEDS: DILTIAZEM HCL 60MG TABLET PO SCH ×5 (01:17→18:00)
[2018-03-11] MEDS: IPRATROPIUM/ALBUTEROL 0.5-3(2.5)MG/3ML NEB INH SCH ×4 (01:53→20:12)
[2018-03-11 05:47] LABS: HEMATOCRIT. 25.8 % (42.0-52.0); HEMOGLOBIN. 8.6 g/dL (14.0-18.0); MEAN CORPUSCULAR VOLUME 87.2 fL (80.0-94.0); MEAN PLATELET VOLUME 9.7 fl (7.4-10.4); PLATELET 184 x1000/uL (130-400); RED BLOOD CELL COUNT 2.96 mill/uL (4.7-6.1); RED CELL DISTRIBUTION WIDTH 14.4 % (11.6-14.6)
[2018-03-11] MEDS: HYDRALAZINE HCL 25MG TABLET PO SCH ×4 (06:00→21:40)
[2018-03-11 06:11] LABS: PHOSPHORUS 4.8 mg/dL (2.5-4.9)
[2018-03-11] MEDS: BLOOD SUGAR DIAGNOSTIC STRIP TEST SCH ×4 (06:30→20:00)
[2018-03-11] MEDS: INSULIN LISPRO 100 UNITS/ML SUBCUT SCH ×4 (08:06→21:42)
[2018-03-11] MEDS: METOPROLOL TARTRATE 100MG TABLET PO SCH ×2 (09:00→21:41)
[2018-03-11] MEDS: PROPYLTHIOURACIL 50MG TABLET NG SCH (09:30)
[2018-03-11] MEDS: PANTOPRAZOLE SODIUM 40 MG/VIAL IV SCH (09:30)
[2018-03-11] MEDS: DEXAMETHASONE 4MG/ML 1ML VIAL IV SCH ×2 (09:30→21:41)
[2018-03-11] MEDS ORDERED: INSULIN GLARGINE UD 100 UNITS/ML SYR SUBCUT SCH ×2 (10:00→22:00)
[2018-03-11] MEDS ORDERED: INSULIN GLARGINE UD 100 UNITS/ML SYR SUBCUT NR (11:00)
[2018-03-11] MEDS: LEVETIRACETAM 750 MG in SODIUM CHLORIDE 0.9% 100 ML IV SCH ×2 (11:37→21:41)
[2018-03-11 12:43] LABS: PLATELET ESTIMATE NORMAL
[2018-03-11] MEDS: METRONIDAZOLE 500MG TABLET NG SCH ×2 (12:46→21:41)
[2018-03-11] MEDS ORDERED: VANCOMYCIN 1 G PREMIX 200 ML IV NR (16:00)
[2018-03-12] VITALS (15 sets, daily range): BP systolic 121–152; BP diastolic 55–78
[2018-03-12] MEDS: DILTIAZEM HCL 60MG TABLET PO SCH ×3 (00:08→12:31)
[2018-03-12] MEDS: BLOOD SUGAR DIAGNOSTIC STRIP TEST SCH ×2 (00:09→04:25)
[2018-03-12] MEDS: INSULIN LISPRO 100 UNITS/ML SUBCUT SCH ×2 (00:09→04:25)
[2018-03-12] MEDS: IPRATROPIUM/ALBUTEROL 0.5-3(2.5)MG/3ML NEB INH SCH ×3 (02:16→12:16)
[2018-03-12] MEDS: METRONIDAZOLE 500MG TABLET NG SCH ×2 (04:24→12:32)
[2018-03-12] MEDS: HYDRALAZINE HCL 25MG TABLET PO SCH (06:30)
[2018-03-12 06:33] LABS: HEMOGLOBIN. 9.2 g/dL (14.0-18.0); MEAN CORPUSCULAR HEMOGLOBIN 29.1 pg (28.0-32.0); MEAN CORPUSCULAR VOLUME 88.8 fL (80.0-94.0); MEAN PLATELET VOLUME 9.8 fl (7.4-10.4); PLATELET 133 x1000/uL (130-400); RED BLOOD CELL COUNT 3.16 mill/uL (4.7-6.1); RED CELL DISTRIBUTION WIDTH 14.2 % (11.6-14.6)
[2018-03-12] MEDS ORDERED: DEXTROSE 50% WATER 50ML SYRINGE IV PRN (07:15)
[2018-03-12 08:54] LABS: PHOSPHORUS 4.2 mg/dL (2.5-4.9)
[2018-03-12] MEDS ORDERED: LEVOFLOXACIN 750MG PREMIX 150 ML IV SCH (09:00)
[2018-03-12] MEDS: LEVETIRACETAM 750 MG in SODIUM CHLORIDE 0.9% 100 ML IV SCH (09:04)
[2018-03-12] MEDS: PROPYLTHIOURACIL 50MG TABLET NG SCH (09:04)
[2018-03-12] MEDS: PANTOPRAZOLE SODIUM 40 MG/VIAL IV SCH (09:04)
[2018-03-12] MEDS: DEXAMETHASONE 4MG/ML 1ML VIAL IV SCH (09:04)
[2018-03-12] MEDS: METOPROLOL TARTRATE 100MG TABLET PO SCH (09:04)
[2018-03-12] MEDS ORDERED: INSULIN GLARGINE UD 100 UNITS/ML SYR SUBCUT SCH (10:00)
[2018-03-12 10:07] LABS: PLATELET ESTIMATE NORMAL
[2018-03-12] MEDS ORDERED: LEVOFLOXACIN 500MG PREMIX 100 ML IV SCH (11:00)
[2018-03-12] MEDS ORDERED: BLOOD SUGAR DIAGNOSTIC STRIP TEST SCH ×2 (11:30→12:00)
[2018-03-12] MEDS ORDERED: INSULIN LISPRO 100 UNITS/ML SUBCUT SCH ×2 (12:00)
== END 2018-03-12 13:45 | disposition short-term general hospital (02) | DRG 853 ==
LOC: ER 23:39 → EDBEDREQTM 03-01 02:09 → EDBEDREQ 03-01 02:09 → MICUSO 03-01 03:26 → EDBEDREQSVC 03-01 03:36 → ENRESERV 03-01 04:51
PROVIDERS: ADMIT Internal Medicine; ATTEND Internal Medicine
PROC: 30233L1 Transfusion of Nonautologous Fresh Plasma into Peripheral Vein, Percutaneous Approach (ICD-10-PCS; 2018-03-01)
PROC: 30233K1 Transfusion of Nonautologous Frozen Plasma into Peripheral Vein, Percutaneous Approach (ICD-10-PCS; 2018-03-01)
PROC: 5A1955Z Respiratory Ventilation, Greater than 96 Consecutive Hours (ICD-10-PCS; 2018-03-02)
PROC: 00C40ZZ Extirpation of Matter from Intracranial Subdural Space, Open Approach (ICD-10-PCS; 2018-03-02)
PROC: 00U207Z Supplement Dura Mater with Autologous Tissue Substitute, Open Approach (ICD-10-PCS; 2018-03-02)
PROC: 009430Z Drainage of Intracranial Subdural Space with Drainage Device, Percutaneous Approach (ICD-10-PCS; 2018-03-02)
PROC: 4A103BD Monitoring of Intracranial Pressure, Percutaneous Approach (ICD-10-PCS; 2018-03-02)
PROC: 0BH17EZ Insertion of Endotracheal Airway into Trachea, Via Natural or Artificial Opening (ICD-10-PCS; 2018-03-02)
PROC: 00H032Z Insertion of Monitoring Device into Brain, Percutaneous Approach (ICD-10-PCS; principal; 2018-03-02 11:00)
PROC: 02HV33Z Insertion of Infusion Device into Superior Vena Cava, Percutaneous Approach (ICD-10-PCS; 2018-03-03)
PROC: B548ZZA Ultrasonography of Superior Vena Cava, Guidance (ICD-10-PCS; 2018-03-03)
PROC: 02HV33Z Insertion of Infusion Device into Superior Vena Cava, Percutaneous Approach (ICD-10-PCS; 2018-03-05)
PROC: B548ZZA Ultrasonography of Superior Vena Cava, Guidance (ICD-10-PCS; 2018-03-05)
PROC: 5A1D70Z Performance of Urinary Filtration, Intermittent, Less than 6 Hours Per Day (ICD-10-PCS; 2018-03-05)
PROC: 5A1D70Z Performance of Urinary Filtration, Intermittent, Less than 6 Hours Per Day (ICD-10-PCS; 2018-03-07)
PROC: 5A1D70Z Performance of Urinary Filtration, Intermittent, Less than 6 Hours Per Day (ICD-10-PCS; 2018-03-09)
PROC: 5A1D70Z Performance of Urinary Filtration, Intermittent, Less than 6 Hours Per Day (ICD-10-PCS; 2018-03-11)
DX: A41.9 Sepsis, unspecified organism (principal); J96.00 Acute respiratory failure, unspecified whether with hypoxia or hypercapnia; N18.6 End stage renal disease; E43 Unspecified severe protein-calorie malnutrition; J69.0 Pneumonitis due to inhalation of food and vomit; I60.9 Nontraumatic subarachnoid hemorrhage, unspecified; G93.49 Other encephalopathy; I62.02 Nontraumatic subacute subdural hemorrhage; I13.2 Hypertensive heart and chronic kidney disease with heart failure and with stage 5 chronic kidney disease, or end stage renal disease; I50.30 Unspecified diastolic (congestive) heart failure; I47.1 Supraventricular tachycardia; D68.69 Other thrombophilia; E87.0 Hyperosmolality and hypernatremia; G81.91 Hemiplegia, unspecified affecting right dominant side; I31.3 Pericardial effusion (noninflammatory); N17.9 Acute kidney failure, unspecified; R47.01 Aphasia; D68.9 Coagulation defect, unspecified; E87.3 Alkalosis; Z99.2 Dependence on renal dialysis; D64.9 Anemia, unspecified; E05.00 Thyrotoxicosis with diffuse goiter without thyrotoxic crisis or storm; E11.22 Type 2 diabetes mellitus with diabetic chronic kidney disease; E78.5 Hyperlipidemia, unspecified; G89.29 Other chronic pain; K76.9 Liver disease, unspecified; I27.20 Pulmonary hypertension, unspecified; I45.10 Unspecified right bundle-branch block; I48.2 Chronic atrial fibrillation; Y95 Nosocomial condition; R19.7 Diarrhea, unspecified; M54.5 Low back pain; R26.9 Unspecified abnormalities of gait and mobility; Z79.01 Long term (current) use of anticoagulants; Z79.4 Long term (current) use of insulin; Z82.49 Family history of ischemic heart disease and other diseases of the circulatory system; Z83.3 Family history of diabetes mellitus; Z85.46 Personal history of malignant neoplasm of prostate; Z90.79 Acquired absence of other genital organ(s); Z90.49 Acquired absence of other specified parts of digestive tract; Z87.891 Personal history of nicotine dependence; Z98.1 Arthrodesis status; Z68.32 Body mass index [BMI] 32.0-32.9, adult; Z78.1 Physical restraint status
CPT/HCPCS: 36415; 36569; 36600; 70450; 70496; 71045; 74176; 76937; 80048; 80053; 80162; 80202; 80305; 80307; 80329; 81003; 82040; 82140; 82375; 82550; 82553; 82805; 82962; 83036; 83520; 83605; 83690; 83721; 83735; 83880; 84100; 84145; 84439; 84443; 84478; 84481; 84484; 85025; 85610; 85730; 86376; 86850; 86900; 86927; 87015; 87040; 87045; 87070; 87086; 87427; 87449; 88304; 89055; 93005; 93306; 93970; 93971; 94003; 94640; 96372; 96374; 99291; A4216; A6261; C1713; C1752; C9113; G0482; J0690; J0692; J0885; J1100; J1160; J1815; J1953; J1956; J2250; J2270; J2704; J3010; J3370; J3430; J3490; J7030; J7040; J7050; J7060; J7620; P9017; Q9967; A4315

== ENCOUNTER 2018-05-13 15:03 | Inpatient (IN) | payer OTHER ==
[~2018-05-13] VITALS: Ht 169.2 cm; Wt 67.1 kg
[2018-05-13 16:49] LABS: BASOPHILS % 0.5 % (0.0-2.0); EOSINOPHILS % 0.5 % (0.0-5.0); LYMPHOCYTES % 15.6 % (20.0-50.0); MEAN CORPUSCULAR HEMOGLOBIN 28.7 pg (28.0-32.0); MEAN CORPUSCULAR VOLUME 89.6 fL (80.0-94.0); MEAN PLATELET VOLUME 8.9 fl (7.4-10.4); MONOCYTES % 7.5 % (2.0-8.0); NEUTROPHILS % 75.9 % (40.0-76.0); PLATELET 176 x1000/uL (130-400); RED BLOOD CELL COUNT 2.41 mill/uL (4.7-6.1)
[2018-05-13 16:54] LABS: HEMATOCRIT. 21.6 % (42.0-52.0); HEMOGLOBIN. 6.9 g/dL (14.0-18.0)
[2018-05-13 17:01] LABS: CHLORIDE 103 mEq/L (98-107)
[2018-05-13 17:05] LABS: ETHANOL BLOOD < 10 mg/dL
[2018-05-13 17:10] LABS: CREATINE KINASE 35 IU/L (39-308)
[2018-05-13 17:19] LABS: AMMONIA 32 uMol/L (<32)
[2018-05-13 17:23] LABS: DIGOXIN 1.1 ng/mL (0.9-2.0)
[2018-05-13] MEDS ORDERED: ACETAMINOPHEN 325MG TABLET PO PRN (19:00)
[2018-05-13] MEDS ORDERED: ACETAMINOPHEN 650MG/20.3ML UDC GT PRN (19:00)
[2018-05-13] MEDS ORDERED: ACETAMINOPHEN 650MG SUPP PR PRN (19:00)
[2018-05-13] MEDS ORDERED: IPRATROPIUM/ALBUTEROL 0.5-3(2.5)MG/3ML NEB INH PRN (19:00)
[2018-05-13] MEDS ORDERED: GUAIFENESIN 200MG/10ML SUGAR FREE UDC PO PRN (19:00)
[2018-05-13] MEDS ORDERED: ONDANSETRON HCL 4MG/2ML INJ IV PRN (19:00)
[2018-05-13] MEDS ORDERED: DOCUSATE SODIUM 100MG CAPSULE PO PRN (19:00)
[2018-05-13] MEDS ORDERED: DEXTROSE 50% WATER 50ML SYRINGE IV PRN (19:00)
[2018-05-13] MEDS ORDERED: DIPHENHYDRAMINE 50MG/ML VIAL IV PRN (19:00)
[2018-05-13] MEDS ORDERED: MAGNESIUM/ALUMINUM HYDROXIDE/SIMETHICONE 30ML UDC PO PRN (19:00)
[2018-05-13 19:18] LABS: INR 1.3; PROTHROMBIN TIME 13.1 sec (9.1-11.1)
[2018-05-13 19:24] LABS: LDL CHOLESTEROL 67 mg/dL (5-100)
[2018-05-13 19:25] LABS: HDL CHOLESTEROL 27 mg/dL (40-59)
[2018-05-13] MEDS: CLONIDINE 0.1MG TABLET PO PRN (19:44)
[2018-05-13 20:04] LABS: AMMONIA 21 uMol/L (<32)
[2018-05-13] MEDS ORDERED: VANCOMYCIN 1 G PREMIX 200 ML IV NR (22:00)
[2018-05-13 23:30] VITALS: BP 190/58
[2018-05-13] MEDS ORDERED: PIPERACILLIN/TAZ 2.25G PREMIX 50 ML IV NR (23:30)
[2018-05-14] VITALS (8 sets, daily range): BP systolic 114–190; BP diastolic 45–60
[2018-05-14] MEDS: CLONIDINE 0.1MG TABLET PO PRN (00:27)
[2018-05-14 01:16] LABS: CREATINE KINASE 35 IU/L (39-308)
[2018-05-14 01:17] LABS: CREATINE KINASE MB FRACTION < 1.0 ng/mL (0.5-3.6)
[2018-05-14] MEDS: PIPERACILLIN/TAZ 3.375G PREMIX 50 ML IV SCH ×2 (02:41→12:03)
[2018-05-14] MEDS ORDERED: VANCOMYCIN 1 G PREMIX 200 ML IV NR (03:00)
[2018-05-14] MEDS: SODIUM CHLORIDE 0.9% INJ 3ML FLUSH IVF SCH ×3 (06:00→21:18)
[2018-05-14 06:45] LABS: BASOPHILS % 0.8 % (0.0-2.0); EOSINOPHILS % 0.9 % (0.0-5.0); HEMATOCRIT. 24.8 % (42.0-52.0); HEMOGLOBIN. 8.2 g/dL (14.0-18.0); LYMPHOCYTES % 26.6 % (20.0-50.0); MEAN PLATELET VOLUME 9.4 fl (7.4-10.4); MONOCYTES % 9.5 % (2.0-8.0); NEUTROPHILS % 62.2 % (40.0-76.0); PLATELET 164 x1000/uL (130-400); RED BLOOD CELL COUNT 2.82 mill/uL (4.7-6.1)
[2018-05-14 07:48] LABS: CREATINE KINASE MB FRACTION < 1.0 ng/mL (0.5-3.6)
[2018-05-14 07:49] LABS: CREATINE KINASE 28 IU/L (39-308)
[2018-05-14 07:50] LABS: HDL CHOLESTEROL 28 mg/dL (40-59); LDL CHOLESTEROL 63 mg/dL (5-100); PHOSPHORUS 3.2 mg/dL (2.5-4.9)
[2018-05-14] MEDS: INSULIN LISPRO 100 UNITS/ML SUBCUT SCH ×4 (07:50→21:00)
[2018-05-14] MEDS: BLOOD SUGAR DIAGNOSTIC STRIP TEST SCH ×4 (08:02→21:21)
[2018-05-14 08:14] LABS: CHLORIDE 102 mEq/L (98-107)
[2018-05-14] MEDS ORDERED: ASPIRIN 81MG EC TABLET PO SCH (09:00)
[2018-05-14] MEDS ORDERED: VANCOMYCIN 500 MG PREMIX 100 ML IV SCH (11:00)
[2018-05-14] MEDS: DILTIAZEM HCL 90MG TABLET PEG SCH ×2 (15:27→21:17)
[2018-05-14] MEDS: PIPERACILLIN/TAZ 2.25G PREMIX 50 ML IV SCH (17:36)
[2018-05-14] MEDS: VANCOMYCIN HCL 1000 MG/20 ML ORAL PO SCH (17:36)
[2018-05-14] MEDS ORDERED: DIGO125T82 MT (18:20)
[2018-05-14] MEDS ORDERED: KEPPSOL GT (18:20)
[2018-05-14] MEDS ORDERED: CARSR90 MT (18:20)
[2018-05-14] MEDS ORDERED: METO100T16 PO (18:20)
[2018-05-14] MEDS ORDERED: ATOR20TA MT (18:20)
[2018-05-14] MEDS ORDERED: EPOE10005 SUBCUT (19:23)
[2018-05-14] MEDS ORDERED: VANJ5 PO (19:23)
[2018-05-14] MEDS ORDERED: EPOETIN ALFA 10000UNITS/ML VIAL SUBCUT SCH (21:00)
[2018-05-14] MEDS ORDERED: ATORVASTATIN CALCIUM 20MG TABLET PO SCH (21:00)
[2018-05-14] MEDS: LEVETIRACETAM 500MG/5ML CUP GT SCH (21:16)
[2018-05-14] MEDS: METOPROLOL TARTRATE 100MG TABLET PO SCH (21:17)
[2018-05-14] MEDS: DILTIAZEM HCL 90MG CAPSULE SR 12HR PO SCH (21:18)
[2018-05-15] VITALS: BP 185/75
[2018-05-15] MEDS: PIPERACILLIN/TAZ 2.25G PREMIX 50 ML IV SCH ×3 (02:28→17:17)
[2018-05-15 04:00] VITALS: BP 175/60
[2018-05-15] MEDS: VANCOMYCIN HCL 1000 MG/20 ML ORAL PO SCH ×4 (06:00→17:17)
[2018-05-15] MEDS: DILTIAZEM HCL 90MG CAPSULE SR 12HR PO SCH (06:00)
[2018-05-15 06:31] LABS: PHOSPHORUS 2.4 mg/dL (2.5-4.9)
[2018-05-15 06:35] LABS: BASOPHILS % 0.6 % (0.0-2.0); EOSINOPHILS % 0.6 % (0.0-5.0); HEMATOCRIT. 24.8 % (42.0-52.0); HEMOGLOBIN. 8.1 g/dL (14.0-18.0); LYMPHOCYTES % 15.2 % (20.0-50.0); MEAN CORPUSCULAR HEMOGLOBIN 28.8 pg (28.0-32.0); MEAN CORPUSCULAR VOLUME 87.8 fL (80.0-94.0); MEAN PLATELET VOLUME 9.4 fl (7.4-10.4); MONOCYTES % 8.6 % (2.0-8.0); PLATELET 144 x1000/uL (130-400); RED BLOOD CELL COUNT 2.82 mill/uL (4.7-6.1); RED CELL DISTRIBUTION WIDTH 15.7 % (11.6-14.6)
[2018-05-15] MEDS: DILTIAZEM HCL 90MG TABLET PEG SCH ×2 (06:37→13:15)
[2018-05-15] MEDS: SODIUM CHLORIDE 0.9% INJ 3ML FLUSH IVF SCH ×2 (06:37→12:49)
[2018-05-15] MEDS: INSULIN LISPRO 100 UNITS/ML SUBCUT SCH ×3 (06:47→17:19)
[2018-05-15] MEDS: BLOOD SUGAR DIAGNOSTIC STRIP TEST SCH ×3 (06:47→17:18)
[2018-05-15] MEDS: NYSTATIN POWDER 15GM TOP SCH ×2 (09:00→17:18)
[2018-05-15] MEDS: METOPROLOL TARTRATE 100MG TABLET PO SCH (09:31)
[2018-05-15] MEDS ORDERED: POTASSIUM CHLORIDE 20MEQ/PACKET PEG NR (10:30)
[2018-05-15] MEDS ORDERED: VANCOMYCIN 750 MG PREMIX 150 ML IV SCH ×2 (11:00→13:30)
[2018-05-15 12:00] VITALS: BP 150/42
[2018-05-15] MEDS ORDERED: POTASSIUM PHOS,M-BASIC-D-BASIC 15 MMOL in DEXT 5% WATER 245 ML IV NR (13:00)
[2018-05-15] MEDS ORDERED: HYDRALAZINE HCL 25MG TABLET PO SCH (14:00)
[2018-05-15 16:00] VITALS: BP 137/48
[2018-05-15] MEDS: LEVETIRACETAM 500MG/5ML CUP GT SCH (17:19)
[2018-05-15] MEDS ORDERED: PROPYLTHIOURACIL 50MG TABLET PO SCH (18:00)
[2018-05-15 20:00] VITALS: BP 110/46
[2018-05-16] MEDS ORDERED: DIGOXIN 125MCG TABLET PO SCH (18:00)
== END 2018-05-15 20:45 | disposition short-term general hospital (02) | DRG 871 ==
LOC: ER 15:03 → 6WST 18:27 → EDBEDREQ 18:28 → EDBEDREQSVC 18:28 → ENRESERV 21:57
PROVIDERS: ADMIT Family Medicine; ATTEND Family Medicine
PROC: 5A1D70Z Performance of Urinary Filtration, Intermittent, Less than 6 Hours Per Day (ICD-10-PCS; principal; 2018-05-14)
DX: A41.9 Sepsis, unspecified organism (principal); G93.41 Metabolic encephalopathy; E43 Unspecified severe protein-calorie malnutrition; N18.6 End stage renal disease; A04.72 Enterocolitis due to Clostridium difficile, not specified as recurrent; D62 Acute posthemorrhagic anemia; I50.32 Chronic diastolic (congestive) heart failure; I13.2 Hypertensive heart and chronic kidney disease with heart failure and with stage 5 chronic kidney disease, or end stage renal disease; I69.351 Hemiplegia and hemiparesis following cerebral infarction affecting right dominant side; E05.90 Thyrotoxicosis, unspecified without thyrotoxic crisis or storm; E11.22 Type 2 diabetes mellitus with diabetic chronic kidney disease; E83.39 Other disorders of phosphorus metabolism; E87.6 Hypokalemia; I25.10 Atherosclerotic heart disease of native coronary artery without angina pectoris; I48.2 Chronic atrial fibrillation; J44.9 Chronic obstructive pulmonary disease, unspecified; Z74.01 Bed confinement status; Z87.01 Personal history of pneumonia (recurrent); Z93.1 Gastrostomy status; Z98.1 Arthrodesis status; Z68.23 Body mass index [BMI] 23.0-23.9, adult; Z99.2 Dependence on renal dialysis; Z79.899 Other long term (current) drug therapy; Z99.3 Dependence on wheelchair; Z79.01 Long term (current) use of anticoagulants; Z79.4 Long term (current) use of insulin; Z82.49 Family history of ischemic heart disease and other diseases of the circulatory system
CPT/HCPCS: 36415; 70450; 70551; 71045; 80048; 80053; 80061; 80162; 80202; 82140; 82550; 82553; 82962; 83036; 83605; 83690; 83735; 83880; 84100; 84439; 84443; 84484; 85025; 85610; 86850; 86900; 86920; 87040; 87493; 92610; 93005; 99285; G0482; J0885; J1815; J2543; J3370; J3490; J7030; J7040; J7050; J7060; P9016

== ENCOUNTER 2018-05-21 01:36 | Inpatient (IN) | payer OTHER ==
[2018-05-21] VITALS (8 sets, daily range): BP systolic 112–166; BP diastolic 45–75
[~2018-05-21] VITALS: Ht 180.3 cm; Wt 72.6 kg
[~2018-05-21 01:36] MED LIST: ATOR20TA MT; CARSR90 MT; DIGO125T82 MT; EPOE10005 SUBCUT; KEPPSOL GT; METO100T16 PO; VANJ5 PO
[2018-05-21 03:45] LABS: INR 1.4; PROTHROMBIN TIME 14.2 sec (9.1-11.1)
[2018-05-21 03:48] LABS: CHLORIDE 108 mEq/L (98-107)
[2018-05-21 04:41] LABS: BASOPHILS % 0.6 % (0.0-2.0); EOSINOPHILS % 0.5 % (0.0-5.0); LYMPHOCYTES % 13.8 % (20.0-50.0); MEAN CORPUSCULAR HEMOGLOBIN 28.5 pg (28.0-32.0); MEAN CORPUSCULAR VOLUME 90.4 fL (80.0-94.0); MEAN PLATELET VOLUME 8.7 fl (7.4-10.4); MONOCYTES % 5.1 % (2.0-8.0); PLATELET 189 x1000/uL (130-400); RED BLOOD CELL COUNT 2.21 mill/uL (4.7-6.1); RED CELL DISTRIBUTION WIDTH 16.4 % (11.6-14.6)
[2018-05-21 05:13] LABS: HEMOGLOBIN. 6.3 g/dL (14.0-18.0)
[2018-05-21] MEDS ORDERED: ACETAMINOPHEN 650MG SUPP PR PRN (10:00)
[2018-05-21] MEDS ORDERED: CLONIDINE 0.1MG TABLET PO PRN (10:00)
[2018-05-21] MEDS ORDERED: HYDROCODONE/ACETAMINOPHEN 5/325MG TABLET PO PRN (10:00)
[2018-05-21] MEDS ORDERED: ONDANSETRON HCL 4MG/2ML INJ IV PRN (10:00)
[2018-05-21] MEDS ORDERED: GUAIFENESIN 200MG/10ML SUGAR FREE UDC PO PRN (10:00)
[2018-05-21] MEDS ORDERED: ACETAMINOPHEN 325MG TABLET PO PRN (10:00)
[2018-05-21] MEDS ORDERED: DEXTROSE 50% WATER 50ML SYRINGE IV PRN (10:00)
[2018-05-21] MEDS ORDERED: DOCUSATE SODIUM 100MG CAPSULE PO PRN (10:00)
[2018-05-21] MEDS ORDERED: HYDROCODONE/ACETAMINOPHEN 10/325MG TABLET PO PRN (10:00)
[2018-05-21] MEDS ORDERED: MAGNESIUM/ALUMINUM HYDROXIDE/SIMETHICONE 30ML UDC PO PRN (10:00)
[2018-05-21] MEDS ORDERED: ACETAMINOPHEN 650MG/20.3ML UDC GT PRN (10:00)
[2018-05-21] MEDS ORDERED: IPRATROPIUM/ALBUTEROL 0.5-3(2.5)MG/3ML NEB INH PRN (10:00)
[2018-05-21] MEDS: BLOOD SUGAR DIAGNOSTIC STRIP TEST SCH ×3 (12:13→21:57)
[2018-05-21] MEDS: INSULIN LISPRO 100 UNITS/ML SUBCUT SCH ×3 (12:14→21:00)
[2018-05-21] MEDS ORDERED: MEDICATION NOT ON FORMULARY EA (Metoprolol Tartrate 100 MG) PO SCH (13:00)
[2018-05-21] MEDS ORDERED: DILTIAZEM HCL 90MG CAPSULE SR 12HR PO SCH (13:00)
[2018-05-21] MEDS ORDERED: VANCOMYCIN HCL 500 MG/VIAL PO SCH (13:00)
[2018-05-21] MEDS: METOPROLOL TARTRATE 100MG TABLET PO SCH ×2 (13:39→21:58)
[2018-05-21] MEDS: DILTIAZEM HCL 90MG TABLET PEG SCH ×2 (13:39→21:59)
[2018-05-21] MEDS: SODIUM CHLORIDE 0.9% INJ 3ML FLUSH IVF SCH ×2 (13:39→21:59)
[2018-05-21] MEDS ORDERED: VANCOMYCIN HCL 1000 MG/20 ML ORAL PO SCH (14:30)
[2018-05-21 18:05] LABS: CREATINE KINASE 25 IU/L (39-308); CREATINE KINASE MB FRACTION < 1.0 ng/mL (0.5-3.6); TOTAL IRON BINDING CAPACITY 115 ug/dL (250-450)
[2018-05-21 18:11] LABS: HEMATOCRIT 25.2 % (42.0-52.0); HEMOGLOBIN 8.3 g/dL (14.0-18.0)
[2018-05-21] MEDS ORDERED: NON FORMULARY PATIENT HOME MED EA XX SCH (18:45)
[2018-05-21] MEDS ORDERED: IRON SUCROSE COMPLEX 100 MG/5 ML ML IV SCH (20:00)
[2018-05-21] MEDS ORDERED: EPOETIN ALFA 10000UNITS/ML VIAL SUBCUT SCH (21:00)
[2018-05-21] MEDS: ATORVASTATIN CALCIUM 20MG TABLET PO SCH (21:58)
[2018-05-21] MEDS: LEVETIRACETAM 500MG/5ML CUP GT SCH (21:58)
[2018-05-21] MEDS: VANCOMYCIN HCL 1000 MG/20 ML ORAL PO SCH (22:00)
[2018-05-22] VITALS (31 sets, daily range): BP systolic 33–136; BP diastolic 16–67
[2018-05-22 01:10] LABS: CREATINE KINASE 19 IU/L (39-308); CREATINE KINASE MB FRACTION < 1.0 ng/mL (0.5-3.6)
[2018-05-22] MEDS: VANCOMYCIN HCL 1000 MG/20 ML ORAL PO SCH ×3 (03:04→21:00)
[2018-05-22] MEDS: DILTIAZEM HCL 90MG TABLET PEG SCH ×2 (05:45→13:57)
[2018-05-22] MEDS: SODIUM CHLORIDE 0.9% INJ 3ML FLUSH IVF SCH (05:45)
[2018-05-22 06:01] LABS: INR 1.3; PARTIAL THROMBOPLASTIN TIME 26.6 sec (23.4-31.0); PROTHROMBIN TIME 12.7 sec (9.1-11.1)
[2018-05-22 06:27] LABS: BASOPHILS % 0.3 % (0.0-2.0); EOSINOPHILS % 0.6 % (0.0-5.0); HEMATOCRIT. 23.4 % (42.0-52.0); LYMPHOCYTES % 18.8 % (20.0-50.0); MEAN CORPUSCULAR HEMOGLOBIN 29.3 pg (28.0-32.0); MEAN CORPUSCULAR VOLUME 85.7 fL (80.0-94.0); MEAN PLATELET VOLUME 8.6 fl (7.4-10.4); MONOCYTES % 8.1 % (2.0-8.0); NEUTROPHILS % 72.2 % (40.0-76.0); PLATELET 155 x1000/uL (130-400); RED BLOOD CELL COUNT 2.73 mill/uL (4.7-6.1); RED CELL DISTRIBUTION WIDTH 15.2 % (11.6-14.6)
[2018-05-22 07:19] LABS: CHLORIDE 109 mEq/L (98-107)
[2018-05-22 07:26] LABS: HDL CHOLESTEROL 18 mg/dL (40-59); LDL CHOLESTEROL 36 mg/dL (5-100); PHOSPHORUS 1.8 mg/dL (2.5-4.9)
[2018-05-22] MEDS: BLOOD SUGAR DIAGNOSTIC STRIP TEST SCH ×3 (07:49→16:57)
[2018-05-22] MEDS: INSULIN LISPRO 100 UNITS/ML SUBCUT SCH ×3 (07:49→17:00)
[2018-05-22] MEDS: METOPROLOL TARTRATE 100MG TABLET PO SCH ×2 (08:57→21:00)
[2018-05-22] MEDS ORDERED: PANTOPRAZOLE SODIUM 40 MG/VIAL IV SCH (09:00)
[2018-05-22] MEDS ORDERED: FENTANYL CITRATE/PF 50MCG/ML 2ML VIAL ONE (11:51)
[2018-05-22] MEDS ORDERED: MIDAZOLAM HCL 5 MG/5 ML VIAL ONE (11:51)
[2018-05-22] MEDS ORDERED: SODIUM CHLORIDE 0.9% 500 ML IV NR (15:45)
[2018-05-22 16:03] LABS: BG BASE EXCESS -6.1 mmol/L (-2.0-2.0); BG CARBOXYHEMOGLOBIN 0.9 % (0.5-1.5); BG DEOXYHEMOGLOBIN 2.3 % (0.0-5.0); BG FRACTION INSPIRED OXYGEN 21; BG HCO3 ACT 16.1 mmol/L (22.0-26.0); BG METHEMOGLOBIN 0.3 % (0.0-1.5); BG OXYGEN SATURATION 97.7 % (92.0-98.5); BG OXYHEMOGLOBIN 96.5 % (94.0-97.0); BG PH 7.483 (7.350-7.450); BG PO2 102.8 mmHg (75.0-100.0); BG SAMPLE SITE RIGHT BRACHIAL; BG TOTAL HEMOGLOBIN 8.7 g/dL (12.0-18.0); BG VENT MODE ROOM AIR
[2018-05-22] MEDS: SUCRALFATE 1 G/10 ML UDC GT SCH ×2 (16:30→21:00)
[2018-05-22] MEDS ORDERED: MORPHINE SULFATE 4 MG/ML CPJ (NOT FOR IM USE) IV PRN (17:00)
[2018-05-22] MEDS ORDERED: NOREPINEPHRINE 8 MG in DEXT 5% WATER 242 ML IV PRN (17:00)
[2018-05-22 17:06] LABS: HEMATOCRIT. 25.9 % (42.0-52.0); HEMOGLOBIN. 8.5 g/dL (14.0-18.0); MEAN CORPUSCULAR HEMOGLOBIN 29.5 pg (28.0-32.0); MEAN CORPUSCULAR VOLUME 90.3 fL (80.0-94.0); MEAN PLATELET VOLUME 8.5 fl (7.4-10.4); PLATELET 128 x1000/uL (130-400); RED BLOOD CELL COUNT 2.86 mill/uL (4.7-6.1); RED CELL DISTRIBUTION WIDTH 15.4 % (11.6-14.6)
[2018-05-22] MEDS ORDERED: PANTOPRAZOLE 80 MG in SODIUM CHLORIDE 0.9% 100 ML IV SCH (17:15)
[2018-05-22] MEDS ORDERED: METOPROLOL TARTRATE 25MG TABLET PO SCH (17:15)
[2018-05-22] MEDS ORDERED: DIGOXIN 500MCG/2ML AMP IV NR (17:15)
[2018-05-22 17:19] LABS: PHOSPHORUS 2.7 mg/dL (2.5-4.9)
[2018-05-22] MEDS: LEVETIRACETAM 500MG/5ML CUP GT SCH (19:00)
[2018-05-22] MEDS ORDERED: LEVOFLOXACIN 250MG PREMIX 50 ML IV SCH (19:45)
[2018-05-22 20:00] LABS: NUCLEATED RED BLOOD CELLS 2 /100 WBC
[2018-05-22] MEDS ORDERED: ALBUMIN HUMAN 25GM/100ML (25%) IV NR (20:00)
[2018-05-22] MEDS ORDERED: DOPAMINE 400MG PREMIX 250 ML IV PRN (20:00)
[2018-05-22 20:01] LABS: PLATELET ESTIMATE NORMAL
[2018-05-22] MEDS: ATORVASTATIN CALCIUM 20MG TABLET PO SCH (21:00)
[2018-05-22] MEDS ORDERED: CEFTRIAXONE 1 G PREMIX 50 ML IV SCH (21:00)
[2018-05-22] MEDS ORDERED: SODIUM CHLORIDE 10% FOR INH 15ML VIAL NEB INH NR (21:30)
[2018-05-22] MEDS ORDERED: PIPERACILLIN/TAZ 2.25G PREMIX 50 ML IV SCH (21:30)
[2018-05-22] MEDS ORDERED: VANCOMYCIN 1250MG in DEXTROSE 5% WATER 250ML IV NR (22:00)
[2018-05-23] MEDS ORDERED: VANCOMYCIN HCL 1000 MG/20 ML ORAL PO SCH
[2018-05-23] MEDS ORDERED: DIGOXIN 125MCG TABLET GT SCH (18:00)
== END 2018-05-22 22:00 | disposition expired | DRG 377 ==
LOC: ER 01:36 → 5EST 05:20 → EDBEDREQSVC 05:25 → EDBEDREQTM 05:25 → EDBEDREQ 05:25 → ENRESERV 09:05 → CANRESERV 09:05 → ENRESERV 09:10 → MICUSO 05-22 16:10
PROVIDERS: ADMIT Family Medicine; ATTEND Family Medicine
PROC: 30233N1 Transfusion of Nonautologous Red Blood Cells into Peripheral Vein, Percutaneous Approach (ICD-10-PCS; principal; 2018-05-21)
PROC: 5A1D70Z Performance of Urinary Filtration, Intermittent, Less than 6 Hours Per Day (ICD-10-PCS; 2018-05-21)
PROC: 05HY33Z Insertion of Infusion Device into Upper Vein, Percutaneous Approach (ICD-10-PCS; 2018-05-21)
PROC: B54MZZZ Ultrasonography of Right Upper Extremity Veins (ICD-10-PCS; 2018-05-21)
PROC: 0W3P8ZZ Control Bleeding in Gastrointestinal Tract, Via Natural or Artificial Opening Endoscopic (ICD-10-PCS; 2018-05-22)
PROC: 0DB78ZX Excision of Stomach, Pylorus, Via Natural or Artificial Opening Endoscopic, Diagnostic (ICD-10-PCS; 2018-05-22)
DX: K26.4 Chronic or unspecified duodenal ulcer with hemorrhage (principal); L89.154 Pressure ulcer of sacral region, stage 4; E43 Unspecified severe protein-calorie malnutrition; N18.6 End stage renal disease; R53.2 Functional quadriplegia; D62 Acute posthemorrhagic anemia; I13.2 Hypertensive heart and chronic kidney disease with heart failure and with stage 5 chronic kidney disease, or end stage renal disease; A04.72 Enterocolitis due to Clostridium difficile, not specified as recurrent; I69.351 Hemiplegia and hemiparesis following cerebral infarction affecting right dominant side; I82.413 Acute embolism and thrombosis of femoral vein, bilateral; K29.61 Other gastritis with bleeding; D63.1 Anemia in chronic kidney disease; E03.9 Hypothyroidism, unspecified; E11.22 Type 2 diabetes mellitus with diabetic chronic kidney disease; G40.909 Epilepsy, unspecified, not intractable, without status epilepticus; I25.10 Atherosclerotic heart disease of native coronary artery without angina pectoris; I48.2 Chronic atrial fibrillation; I50.9 Heart failure, unspecified; K44.9 Diaphragmatic hernia without obstruction or gangrene; K76.0 Fatty (change of) liver, not elsewhere classified; M89.9 Disorder of bone, unspecified; R13.10 Dysphagia, unspecified; E05.00 Thyrotoxicosis with diffuse goiter without thyrotoxic crisis or storm; I95.9 Hypotension, unspecified; E21.3 Hyperparathyroidism, unspecified; L89.310 Pressure ulcer of right buttock, unstageable; Z74.01 Bed confinement status; Z79.01 Long term (current) use of anticoagulants; Z85.46 Personal history of malignant neoplasm of prostate; Z86.19 Personal history of other infectious and parasitic diseases; Z87.01 Personal history of pneumonia (recurrent); Z68.22 Body mass index [BMI] 22.0-22.9, adult; Z90.49 Acquired absence of other specified parts of digestive tract; Z87.891 Personal history of nicotine dependence; Z90.79 Acquired absence of other genital organ(s); Z93.1 Gastrostomy status; Z99.2 Dependence on renal dialysis; Z79.899 Other long term (current) drug therapy
CPT/HCPCS: 36415; 36569; 36600; 71045; 74176; 76937; 80048; 80061; 82375; 82550; 82553; 82728; 82805; 82962; 83540; 83550; 83735; 84100; 84134; 84153; 84484; 85014; 85018; 86850; 86900; 86920; 88305; 88313; 93970; 99291; C1725; C9113; J0696; J0885; J1160; J1265; J2250; J2270; J2543; J3010; J3370; J3490; J7040; J7050; J7060; J7131; P9016; P9047; G0103